=== PATIENT | female | born 1970 | race Caucasian/White ===

== ENCOUNTER → 2016-10-08 | Outpatient (CLI) | payer OTHER | LOC: FIMAGING 13:35 | DX: Z12.31 Encounter for screening mammogram for malignant neoplasm of breast (principal); Z80.3 Family history of malignant neoplasm of breast | CPT/HCPCS: G0202 ==

== ENCOUNTER 2017-01-09 08:56 | Day surgery (SDC) | payer OTHER ==
[~2017-01-09 08:56] MED LIST: BOTULINUM TOXIN TYPE A 100 UNIT VIAL MISC ONE
[2017-01-09] MEDS ORDERED: NS 1,000 ML IV SCH (09:45)
[2017-01-09] MEDS ORDERED: fentaNYL 100 MCG/2 ML INJ IVP ONE (10:30)
[2017-01-09] MEDS ORDERED: fentaNYL 100 MCG/2 ML INJ ONE (11:03)
[2017-01-09] MEDS ORDERED: MIDAZOLAM 2 MG/2 ML VIAL ONE (11:03)
--- NOTE | 2017-01-09 17:07 | GPN ---
[f rep st] PROCEDURE NOTE DATE OF PROCEDURE: 01/09/2017 PROCEDURE: Flexible sigmoidoscopy with Botox injection. INDICATION: Anal fissure not responding to conservative therapies with diltiazem, lidocaine ointmen t, and stool softeners. PREOPERATIVE DIAGNOSIS: Anal fissure. POSTOPERATIVE DIAGNOSIS: Anal fissure, status post Botox injection with 100 units divided into 4 eq ual sections in each of 4 quadrants. INFORMED CONSENT: I had a detailed discussion with the patient regarding the procedure, alternative s, benefits, and risks including bleeding, perforation, infection, risk of medication. Informed con sent was signed and witnessed. COMPLICATIONS: None immediate. MEDICATIONS: Versed 8 mg IV, fentanyl 150 mcg IV. DESCRIPTION OF PROCEDURE: After adequate sedation, patient remained in left lateral decubitus posit ion. A visual and digital anorectal examination was performed. Her posterior midline fissure was n oted on digital examination. The forward viewing upper endoscope was inserted via the anus into the rectum, advanced into the sigmoid and descending colon. The mucosa was normal. The prep was very good. I withdrew the instrument back into the rectum. Retroflex examination was performed. I note d the area for injections in the distal rectum. I then inserted the needle injector and injected a total of 100 units of Botox in equal aliquots in 4 quadrants, each approximately 2.5 cc. The needle injector was removed. The endoscope was un-retroflexed and removed confirming the above findings. The patient tolerated the procedure well and was transferred to the recovery room in satisfactory c ondition. IMPRESSION: 1. Anal fissure, status post Botox injection, 100 units in total in 4 quadrant injections. 2. Normal mucosa to descending colon. RECOMMENDATIONS: 1. Continue Colace/docusate sodium 100 mg b.i.d. 2. Continue diltiazem lidocaine ointment b.i.d. 3. Keep stools soft. Will add milk of magnesia 5 mL, titrate up to desired dose. Of note, she had difficulty titrating MiraLAX. She either got too loose or not loose enough. 4. Increase fiber to keep stool soft. I like consistency of soft serve ice cream so it does not co ntinue to tear this fissure. 5. If the above is not effective in healing the fissure, then consider surgical referral for sphinc terotomy. 6. For pain relief, I am going to give the patient a prescription for Ultram 50 mg immediate releas e 1 q.4 hours p.r.n. If it is effective, we can continue if necessary. I would like to avoid narco tics as they would cause constipation. I want to avoid high dose ibuprofen secondary to GI and side effects of nephrotoxicity. 7. Follow up with PCP as scheduled. 8. Further recommendations to follow results of above and clinical course. Thank you for allowing me to participate in this patient's healthcare. Do not hesitate to call me w ith any questions. /[id number]/MODL
== END 2017-01-09 12:55 | disposition home or self-care (01) ==
LOC: FSGY 08:56
PROVIDERS: ATTEND Internal Medicine Gastroenterology
PROC: 0D5N8ZZ Destruction of Sigmoid Colon, Via Natural or Artificial Opening Endoscopic (ICD-10-PCS; principal; 2017-01-09 09:45)
DX: K60.1 Chronic anal fissure (principal)
CPT/HCPCS: J0585; J2250; J3010

== ENCOUNTER → 2017-11-27 | Outpatient (CLI) | payer OTHER | LOC: FIMAGING 12:28 | PROVIDERS: ATTEND Family Medicine | DX: Z12.31 Encounter for screening mammogram for malignant neoplasm of breast (principal); Z80.3 Family history of malignant neoplasm of breast ==

== ENCOUNTER → 2018-12-01 | Outpatient (CLI) | payer OTHER | LOC: FIMAGING 09:49 | PROVIDERS: ATTEND Family Medicine | DX: Z12.31 Encounter for screening mammogram for malignant neoplasm of breast (principal); Z80.3 Family history of malignant neoplasm of breast ==